=== PATIENT | female | born 1970 | race Native Hawaiian/Other Pacific Islander ===

== ENCOUNTER 2016-09-03 10:05 | Emergency (ER) | payer OTHER ==
[~2016-09-03] VITALS: Ht 154.9 cm; Wt 54.4 kg
--- NOTE | 2016-09-03 10:41 | NUR ---
PT IS IN ROOM #2B. DR DE JESUS EVALUATED THE PT.
--- NOTE | 2016-09-03 10:56 | NUR ---
PT WAS D/C TO HOME. D/C INSTRUCTIONS GIVEN TO THE PT.
[2016-09-03 10:57] VITALS: BP 125/68
[2016-09-03] MEDS ORDERED: KETOROLAC TROMETHAMINE 30 MG INJ IM ONE (11:00)
== END 2016-09-03 10:57 | disposition home or self-care (01) ==
LOC: ER 10:05
DX: M54.5 Low back pain (principal)
CPT/HCPCS: A4663; J1885

== ENCOUNTER 2017-04-01 07:17 | Outpatient (CLI) | payer BC, OTHER ==
[2017-04-01 08:25] LABS: BASOPHILS % (AUTO) 0.5 % (0.0-2.0); EOSINOPHILS # (AUTO) 0.1 K/uL (0.0-0.7); EOSINOPHILS % (AUTO) 1.9 % (0.0-7.0); HEMATOCRIT 35.5 % (31.2-41.9); LYMPHOCYTES # (AUTO) 1.1 K/uL (20.0-40.0); LYMPHOCYTES % (AUTO) 31.7 % (20.5-51.5); MEAN CORPUSCULAR HEMOGLOBIN 28.8 uug (24.7-32.8); MEAN CORPUSCULAR HGB CONC 34 g/dL (32.3-35.6); MEAN CORPUSCULAR VOLUME 85.5 fL (75.5-95.3); MONOCYTES # (AUTO) 0.2 K/uL (2.0-10.0); NEUTROPHILS % (AUTO) 58.9 % (38.5-71.5); PLATELET COUNT (AUTO) 285 K/uL (179-408); RED BLOOD CELL COUNT(AUTO) 4.16 MIL/uL (3.63-4.92); WHITE BLOOD COUNT (AUTO) 3.4 K/uL (3.8-11.8)
[2017-04-01 08:33] LABS: *BILIRUBIN,URIN NEGATIVE (NEGATIVE); *BLOOD, URINE NEGATIVE (NEGATIVE); *COLOR,URINE YELLOW (YELLOW); *KETONES,URINE NEGATIVE (NEGATIVE); *PROTEIN,URINE NEGATIVE (NEGATIVE); *UROBILINOGEN,URINE 0.2 E.U./dl (NORMAL); LEUKOCYTE ESTERASE ,URINE 1+ (NEGATIVE); NITRITE, URINE NEGATIVE (NEGATIVE); PH,URINE 6.5 (5.0-8.0); UGLUCOSE NEGATIVE (NEGATIVE)
[2017-04-01 08:34] LABS: *CLARITY,URINE SLIGHTLY HAZY (CLEAR)
[2017-04-01 08:41] LABS: BACTERIA,URINE FEW /HPF (NONE SEEN); RBC,URINE 0-3 /HPF (0-3)
[2017-04-01 08:42] LABS: BILIRUBIN,TOTAL 0.5 mg/dL (0.2-1.0); CREATININE 0.6 mg/dL (0.6-1.3); SQUAMOUS EPITHELIAL CELL,UR MANY /HPF (NONE SEEN); TOTAL PROTEIN, SERUM 7.2 g/dL (6.4-8.2)
[2017-04-01 08:49] LABS: THYROID STIMULATING HORMONE 1.306 mIU/mL (0.358-3.740)
[2017-04-02 09:07] LABS: VIT D, 25-HYDROXY 19.6 ng/mL (30.0-100.0)
[2017-04-02 10:07] LABS: ESTRADIOL 84.4 pg/mL (.); FOLLICLE STIMULATION HORMONE 6.8 mIU/mL (.); LUTEINIZING HORMONE 2.2 mIU/mL (.); PROGESTERONE 8.5 ng/mL (.)
== END 2017-04-01 23:59 | disposition home or self-care (01) ==
LOC: LAB 07:17
PROVIDERS: ATTEND Internal Medicine
DX: N95.1 Menopausal and female climacteric states (principal); F39 Unspecified mood [affective] disorder
CPT/HCPCS: 36415; 82306; 82670; 83001; 83002; 84443; 85025; 87086

== ENCOUNTER 2017-08-22 10:30 | Day surgery (SDC) | payer BC, OTHER ==
[2017-08-22] MEDS ORDERED: PROPOFOL 200 MG/20 ML BOTTLE IV ONE (10:31)
[2017-08-22] MEDS ORDERED: LIDOCAINE HCL 1% 20 ML VIAL MC ONE (10:31)
[2017-08-22 11:14] LABS: BASOPHILS % (AUTO) 0.5 % (0.0-2.0); EOSINOPHILS # (AUTO) 0.1 K/uL (0.0-0.7); EOSINOPHILS % (AUTO) 1.6 % (0.0-7.0); HEMATOCRIT 36.5 % (31.2-41.9); HEMOGLOBIN 12.1 g/dL (10.9-14.3); LYMPHOCYTES # (AUTO) 1.3 K/uL (20.0-40.0); LYMPHOCYTES % (AUTO) 33.4 % (20.5-51.5); MEAN CORPUSCULAR HEMOGLOBIN 26.4 uug (24.7-32.8); MEAN CORPUSCULAR HGB CONC 33 g/dL (32.3-35.6); MEAN CORPUSCULAR VOLUME 79.7 fL (75.5-95.3); MONOCYTES # (AUTO) 0.4 K/uL (2.0-10.0); MONOCYTES % (AUTO) 8.7 % (0.0-11.0); NEUTROPHILS # (AUTO) 2.2 K/uL (1.8-8.9); NEUTROPHILS % (AUTO) 55.8 % (38.5-71.5); PLATELET COUNT (AUTO) 330 K/uL (179-408); RED BLOOD CELL COUNT(AUTO) 4.58 MIL/uL (3.63-4.92)
[2017-08-22 11:15] LABS: *BILIRUBIN,URIN NEGATIVE (NEGATIVE); *BLOOD, URINE Trace-intact (NEGATIVE); *CLARITY,URINE SLIGHTLY CLOUDY (CLEAR); *COLOR,URINE YELLOW (YELLOW); *KETONES,URINE NEGATIVE (NEGATIVE); *PROTEIN,URINE TRACE (NEGATIVE); *UROBILINOGEN,URINE 0.2 E.U./dl (NORMAL); LEUKOCYTE ESTERASE ,URINE NEGATIVE (NEGATIVE); NITRITE, URINE NEGATIVE (NEGATIVE); PH,URINE 5.5 (5.0-8.0); UGLUCOSE NEGATIVE (NEGATIVE)
[2017-08-22 11:16] LABS: *URINE HCG, QUAL NEGATIVE (NEGATIVE)
[2017-08-22 11:22] LABS: BILIRUBIN,TOTAL 0.5 mg/dL (0.2-1.0); CREATININE 0.6 mg/dL (0.6-1.3); POTASSIUM 3.8 mmol/L (3.5-5.1); TOTAL PROTEIN, SERUM 7.9 g/dL (6.4-8.2)
[2017-08-22 11:25] LABS: WBC,URINE 0-3 /HPF (0-3)
[2017-08-22 11:26] LABS: BACTERIA,URINE FEW /HPF (NONE SEEN); MUCUS,URINE MANY /LPF (0-FEW); SQUAMOUS EPITHELIAL CELL,UR MANY /HPF (NONE SEEN)
== END 2017-08-22 14:10 | disposition home or self-care (01) ==
LOC: DS 10:30
PROVIDERS: ATTEND Internal Medicine Gastroenterology
DX: K64.8 Other hemorrhoids (principal); K29.70 Gastritis, unspecified, without bleeding; Z80.0 Family history of malignant neoplasm of digestive organs; Z82.49 Family history of ischemic heart disease and other diseases of the circulatory system; Z79.899 Other long term (current) drug therapy; Z88.0 Allergy status to penicillin; Z98.890 Other specified postprocedural states
CPT/HCPCS: 36415; 43239; 45378; 80053; 81001; 84703; 85025; 85730; 88305; 88312; 88342; A4217; A4663; J3490 ×2; J7120